=== PATIENT | male | born 1970 | race Caucasian/White ===

== ENCOUNTER 2020-02-02 10:23 | Emergency (ER) | payer OTHER, SELFPAY ==
[~2020-02-02] VITALS: Ht 185.4 cm; Wt 97.7 kg
[2020-02-02] MEDS ORDERED: CYCLOBENZAPRINE 10 MG TABLET ONE (10:48)
[2020-02-02] MEDS ORDERED: KETOROLAC 30 MG/1 ML ONE (10:48)
--- NOTE | 2020-02-02 10:56 | NUR ---
PT MEDICATED FOR 810 SCROTAL/PELVIC/LOW BACK PAIN. PT UPDATED ON POC. 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 AWAITING US, XR.
[2020-02-02] MEDS ORDERED: KETOROLAC 30 MG/1 ML IM ONE (11:00)
[2020-02-02] MEDS ORDERED: CYCLOBENZAPRINE 10 MG TABLET PO ONE (11:00)
[2020-02-02 11:07] LABS: ALBUMIN 4.1 g/dL (3.4-5.0); ANION GAP 3 mmol/L (5-15); CALCIUM 9.8 mg/dL (8.5-10.1); CHLORIDE 106 mmol/L (98-107)
[2020-02-02 11:12] LABS: ALANINE AMINOTRANSFERASE 45 U/L (12-78); ALKALINE PHOSPHATASE 85 U/L (45-117); BILIRUBIN,TOTAL 0.4 mg/dL (0.2-1.0); CREATININE 1.08 mg/dL (0.7-1.3); TOTAL PROTEIN 7.4 g/dL (6.4-8.2)
--- NOTE | 2020-02-02 11:35 | NUR ---
URINE COLLECTED/SENT TO LAB. PT TO US. PT REPORTS PAIN BETTER AT THIS TIME.
[2020-02-02 11:46] LABS: MEAN CORPUSCULAR HEMOGLOBIN 30.9 pg (27.5-34.5); MEAN CORPUSCULAR HGB CONC 33.6 g/dL (33.2-36.2); MEAN PLATELET VOLUME 7.7 fL (7.4-10.4); PLATELET COUNT 322 x10^3/uL (130-400); RED BLOOD COUNT 4.66 x10^6/uL (4.38-5.82); RED CELL DISTRIBUTION WIDTH 14.2 % (9.4-14.8)
[2020-02-02 11:48] LABS: BASOPHILS # (AUTO) 0.06 x10^3/uL (0-0.1); BASOPHILS % (AUTO) 1 % (0-1); EOSINOPHILS # (AUTO) 0.24 x10^3/uL (0-0.4); EOSINOPHILS % (AUTO) 3 % (1-7); LYMPHOCYTES # (AUTO) 2.48 x10^3/uL (1-3.4); LYMPHOCYTES % (AUTO) 31 % (22-44); MD SCAN; MONOCYTES # (AUTO) 0.44 x10^3/uL (0.2-0.8); MONOCYTES % (AUTO) 6 % (2-9); NEUTROPHILS # (AUTO) 4.82 x10^3/uL (1.8-6.8); NEUTROPHILS % (AUTO) 60 % (42-75)
[2020-02-02 11:56] LABS: MICROSCOPIC AUTO
--- NOTE | 2020-02-02 12:31 | NUR ---
US RESULTS BACK,PT FOR RECHECK.
--- NOTE | 2020-02-02 12:36 | NUR ---
ADD ON ORDER FOR CT.
[2020-02-02 14:15] VITALS: BP 122/61
== END 2020-02-02 14:17 | disposition home or self-care (01) ==
LOC: ED 12:20
DX: N50.812 Left testicular pain (principal); N50.811 Right testicular pain; R10.2 Pelvic and perineal pain; R10.13 Epigastric pain; Z88.8 Allergy status to other drugs, medicaments and biological substances
CPT/HCPCS: 36415; 72110; 74176; 76870; 80053; 81001; 85025; 96372; 99285; J1885

== ENCOUNTER 2020-04-05 15:54 | Emergency (ER) | payer SELFPAY ==
[~2020-04-05] VITALS: Ht 185.4 cm; Wt 88.9 kg
--- NOTE | 2020-04-05 16:49 | NUR ---
HEALTH UNDERWRITER: PT TO ROOM FROM [facility]
[2020-04-05] MEDS ORDERED: QUET100T4 PO (17:01)
[2020-04-05] MEDS ORDERED: BUPR-86 PO (17:01)
[2020-04-05] MEDS ORDERED: BENZONATATE 100 MG CAPSULE ONE (17:16)
[2020-04-05] MEDS ORDERED: DEXAMETHASONE 4 MG/ML, 5ML ONE (17:16)
--- NOTE | 2020-04-05 17:16 | NUR ---
THIS IS A 50 YO MALE COMING IN FOR SUBSTANCE ABUSE, STATES "I WAS CLEAN FOR YEARS, AND A COUPLE MONTHS AGO I STARTED USING METH AND DRINKING, AND I WANT TO STOP." LAST USE FOR METH AND ETOH WAS OVER A WEEK AGO. STATES "I PISSED HOT AND I THINK I MIGHT LSOE MY JOB". PATIENT APPEARS ANXIOUS, STATES "I JUST FEEL DEPRESSED AND ANXIOUS ALL THE TIME AND I WANT TO STAY CLEAN". PATIENT IS MAKING COMMENTS SUCH "I WAS WALKING AROUND FOR HOURS LAST NIGHT AND THOUGHT MAYBE IT WOULD JUST BE BETTER IF I WASN'T HERE", DENIES HAVING SUICIDAL PLAN IN PLACE. SCORED "MODERATE SAFETY INTERVENTIONS" ON SUICIDE SCREEN, MANAGER OF WAREHOUSE AWARE. CALL LIGHT IN REACH, DENIES NEEDS AT THIS TIME.
[2020-04-05] MEDS ORDERED: ASPIRIN 81 MG TABLET CHEW ONE (17:17)
[2020-04-05] MEDS ORDERED: DOXYCYCLINE 100MG TABLET ONE (17:17)
--- NOTE | 2020-04-05 18:05 | NUR ---
VAL RILEYN IN ROOM FOR EVAL
[2020-04-05] MEDS ORDERED: IBUPROFEN 600 MG TABLET ONE (18:18)
[2020-04-05 18:26] VITALS: BP 159/105
--- NOTE | 2020-04-05 18:29 | NUR ---
PER [address] [facility]REIGHT, SOCIAL WORK CALLED FOR EVAL
[2020-04-05] MEDS ORDERED: IBUPROFEN 200 MG TABLET PO ONE (18:30)
--- NOTE | 2020-04-05 18:55 | NUR ---
REPORT GIVEN TO EULALIO MCNAMARA. PLAN OF CARE DISCUSSED
--- NOTE | 2020-04-05 19:14 | NUR ---
Leonila, social security benefits interviewer, finished consulting with patient. Discharge instructions given. All questions and concerns addressed. Patient ambulatory with a steady gait. Belongings with patient.
== END 2020-04-05 19:15 | disposition home or self-care (01) ==
LOC: ED 17:04
DX: F15.129 Other stimulant abuse with intoxication, unspecified (principal); F10.10 Alcohol abuse, uncomplicated; M25.571 Pain in right ankle and joints of right foot; Z72.9 Problem related to lifestyle, unspecified
CPT/HCPCS: 99283

== ENCOUNTER 2020-05-18 03:58 | Emergency (ER) | payer MEDICAID ==
[~2020-05-18] VITALS: Ht 185.4 cm; Wt 92.9 kg
[~2020-05-18 03:58] MED LIST: BUPR-86 PO; QUET100T4 PO
[2020-05-18] MEDS ORDERED: KETOROLAC 30 MG/1 ML ONE (04:59)
[2020-05-18] MEDS ORDERED: METOCLOPRAMIDE 5 MG/ML, 2ML ONE (04:59)
[2020-05-18] MEDS ORDERED: DIPHENHYDRAMINE 50 MG/ML, 1ML ONE (04:59)
[2020-05-18] MEDS ORDERED: SODIUM CHLORIDE 0.9% 1,000ML IVBOLUS ONE (05:00)
[2020-05-18] MEDS ORDERED: SODIUM CHLORIDE FLUSH 10ML SYR IVF ONE (05:00)
[2020-05-18] MEDS ORDERED: KETOROLAC 30 MG/1 ML IVPush ONE (05:00)
[2020-05-18] MEDS ORDERED: DIPHENHYDRAMINE 50 MG/ML, 1ML IVPush ONE (05:00)
[2020-05-18] MEDS ORDERED: METOCLOPRAMIDE 5 MG/ML, 2ML IVPush ONE (05:00)
[2020-05-18 06:06] VITALS: BP 143/84
== END 2020-05-18 06:58 | disposition home or self-care (01) ==
LOC: ED 05:11
DX: G43.C0 Periodic headache syndromes in child or adult, not intractable (principal); R11.2 Nausea with vomiting, unspecified; H53.149 Visual discomfort, unspecified
CPT/HCPCS: 70450; 93005; 96361; 96374; 96375; 99284; J1200; J1885; J2765; J7030

== ENCOUNTER 2020-07-09 18:58 | Emergency (ER) | payer MEDICAID ==
[~2020-07-09] VITALS: Ht 185.4 cm; Wt 100.0 kg
[2020-07-09 19:03] VITALS: BP 148/88
--- NOTE | 2020-07-09 19:10 | NUR ---
GUEST SERVICES LEAD: PT REFUSED EKG.
[2020-07-09] MEDS ORDERED: SODIUM CHLORIDE FLUSH 10ML SYR IVF ONE (19:30)
--- NOTE | 2020-07-09 20:46 | NUR ---
pt to room from lobby
--- NOTE | 2020-07-09 21:00 | NUR ---
PT REFUSED ASSESSMENT AND VITALS. PT STATES HE JUST WANTS A COVID TEST.
== END 2020-07-09 21:29 | disposition home or self-care (01) ==
LOC: ED 20:56
DX: R05 Cough (principal); J02.9 Acute pharyngitis, unspecified; Z20.828 Contact with and (suspected) exposure to other viral communicable diseases; R07.89 Other chest pain; R10.12 Left upper quadrant pain; R00.0 Tachycardia, unspecified; F17.200 Nicotine dependence, unspecified, uncomplicated
CPT/HCPCS: 71045; 87635; 99284